=== PATIENT | female | born 1985 | race Caucasian/White ===

== ENCOUNTER → 2017-10-17 | Outpatient (CLI) | payer BC ==
[~2017-10-17] MED LIST: AMOX250 PO; AMOX500 PO; AZIT250 PO; Advil200 M1 PO; BIRTH CONTROL; CRUTCH3 USE; FEXO180; GLIP5 PO; HYDACE5 PO; IBUP800 PO; LISI5 PO; LOSA50 PO; METF500 PO; POLTRIOPSO OU; PRED20 PO; Prednisone20 MG PO; RXCODACET PO; RXHYDACE PO
[2017-10-17 09:57] LABS: BASOPHILS ABSOLUTE AUTO 0.03 K/mm3 (0.00-0.23); BASOPHILS PERCENT AUTO 0 % (0-2); EOSINOPHILS ABSOLUTE AUTO 0.13 K/mm3 (0.00-0.68); EOSINOPHILS PERCENT AUTO 1 % (0-6); Hematocrit 47.5 % (33.0-51.0); Hemoglobin 16.4 g/dL (11.5-16.0); IMMATURE GRAN ABSOLUTE AUTO 0.05 K/mm3 (0.00-0.10); IMMATURE GRAN PERCENT AUTO 1 % (0-1); LYMPHOCYTES ABSOLUTE AUTO 2.35 K/mm3 (0.84-5.20); LYMPHOCYTES PERCENT AUTO 26 % (21-46); MONOCYTES ABSOLUTE AUTO 0.48 K/mm3 (0.16-1.47); MONOCYTES PERCENT AUTO 5 % (4-13); Mean Corpuscular HGB 29.4 pg (26.0-34.0); Mean Corpuscular HGB Conc 34.5 g/dL (31.5-36.5); Mean Corpuscular Volume 85 fL (80-100); Mean Platelet Volume 11.9 fL (9.1-12.4); NEUTROPHILS ABSOLUTE AUTO 6.14 K/mm3 (1.96-9.15); NEUTROPHILS PERCENT AUTO 67 % (41-73); Platelet Count 223 K/mm3 (150-400); RDW Coefficient Variation 11.9 % (11.7-14.2); RDW Standard Deviation 36.7 fL (35.1-46.3); Red Blood Cell Count 5.58 M/mm3 (3.80-5.20); White Blood Cell Count 9.18 K/mm3 (4.00-11.30)
[2017-10-17 10:11] LABS: Alanine Aminotransfer (ALT/SGP 27 U/L (12-78); Albumin, Blood 3.6 g/dL (3.4-5.0); Albumin/Globulin Ratio 0.8 (0.8-1.8); Alk Phos 85 U/L (40-126); Anion Gap 9 mmol/L (6-16); Aspartate Aminotrans (AST/SGOT 15 U/L (12-37); Bilirubin, Total 0.6 mg/dL (0.1-1.0); Blood Urea Nitrogen 14 mg/dL (8-24); Bun/Creatinine Ratio 21.9 (12.0-20.0); CO2, Blood 27 mmol/L (21-32); Calcium, Blood 8.7 mg/dL (8.5-10.1); Chloride, Blood 99 mmol/L (98-108); Creatinine, Blood 0.64 mg/dL (0.40-1.00); Globulin, Blood 4.4 g/dL (2.2-4.0); Glomerular Filtration Rate >60 (60-); Glucose, Blood 297 mg/dL (70-99); Potassium, Blood 4.1 mmol/L (3.5-5.5); Sodium, Blood 135 mmol/L (136-145)
== END | disposition home or self-care (01) ==
LOC: LAB EV 09:53
PROVIDERS: General Practice
DX: E11.65 Type 2 diabetes mellitus with hyperglycemia (principal)
CPT/HCPCS: 80053; 83036; 85025

== ENCOUNTER → 2024-03-03 | Outpatient (CLI) | payer OTHER ==
[~2024-03-03] MED LIST changes: +AMLO5 PO; +AMLODIPINE BESY10 MG PO; +ASPI81CH PO; +ATOR80 PO; +Ascorbic Acid500 MG PO; +CHLO25B PO; +CLOP75 PO; +HYDCHL25 PO; +HYDR10 PO; +HYDRA50 PO; +LABE100 PO; +MULVITA PO; +POTA8 PO; +TICA90TA PO
[2024-03-03 14:46] LABS: BASOPHILS ABSOLUTE AUTO 0.03 K/mm3 (0.00-0.23); BASOPHILS PERCENT AUTO 0 % (0-2); EOSINOPHILS ABSOLUTE AUTO 0.13 K/mm3 (0.00-0.68); EOSINOPHILS PERCENT AUTO 1 % (0-6); Hematocrit 37.8 % (33.0-51.0); Hemoglobin 12.8 g/dL (11.5-16.0); IMMATURE GRAN ABSOLUTE AUTO 0.03 K/mm3 (0.00-0.10); IMMATURE GRAN PERCENT AUTO 0 % (0-1); LYMPHOCYTES ABSOLUTE AUTO 1.47 K/mm3 (0.84-5.20); LYMPHOCYTES PERCENT AUTO 13 % (21-46); MONOCYTES ABSOLUTE AUTO 0.78 K/mm3 (0.16-1.47); MONOCYTES PERCENT AUTO 7 % (4-13); Mean Corpuscular HGB 30.3 pg (26.0-34.0); Mean Corpuscular HGB Conc 33.9 g/dL (31.5-36.5); Mean Corpuscular Volume 89 fL (80-100); Mean Platelet Volume 11.9 fL (9.1-12.4); NEUTROPHILS ABSOLUTE AUTO 8.73 K/mm3 (1.96-9.15); NEUTROPHILS PERCENT AUTO 78 % (41-73); Platelet Count 276 K/mm3 (150-400); RDW Coefficient Variation 12.7 % (11.7-14.2); RDW Standard Deviation 41.1 fL (35.1-46.3); Red Blood Cell Count 4.23 M/mm3 (3.80-5.20); White Blood Cell Count 11.17 K/mm3 (4.00-11.30)
[2024-03-03 14:57] LABS: Albumin, Blood 3.5 g/dL (3.4-5.0); Albumin/Globulin Ratio 0.9 (0.8-1.8); Bilirubin, Total 0.7 mg/dL (0.1-1.0); Bun/Creatinine Ratio 31.5 (12.0-20.0); Calcium, Blood 8.8 mg/dL (8.5-10.1); Creatinine, Blood 1.11 mg/dL (0.40-1.00); Globulin, Blood 4.1 g/dL (2.2-4.0); Potassium, Blood 4.1 mmol/L (3.5-5.5); Total Protein, Blood 7.6 g/dL (6.4-8.2)
== END | disposition home or self-care (01) ==
LOC: LAB 14:42 → LAB SHORT 14:42
PROVIDERS: Physician Assistant Medical
DX: E86.0 Dehydration (principal)
CPT/HCPCS: 80053; 85025

== ENCOUNTER 2024-03-04 05:24 | Inpatient (IN) | payer OTHER ==
[~2024-03-04] VITALS: Ht 147.3 cm; Wt 79.6 kg
[~2024-03-04 05:24] MED LIST changes: -AMLODIPINE BESY10 MG PO; -CHLO25B PO; -HYDRA50 PO; -LABE100 PO; -POTA8 PO; -TICA90TA PO
[2024-03-04 06:30] LABS: BASOPHILS ABSOLUTE AUTO 0.03 K/mm3 (0.00-0.23); BASOPHILS PERCENT AUTO 0 % (0-2); EOSINOPHILS ABSOLUTE AUTO 0.18 K/mm3 (0.00-0.68); EOSINOPHILS PERCENT AUTO 2 % (0-6); Hematocrit 39.7 % (33.0-51.0); Hemoglobin 13.5 g/dL (11.5-16.0); IMMATURE GRAN ABSOLUTE AUTO 0.03 K/mm3 (0.00-0.10); IMMATURE GRAN PERCENT AUTO 0 % (0-1); LYMPHOCYTES ABSOLUTE AUTO 1.78 K/mm3 (0.84-5.20); LYMPHOCYTES PERCENT AUTO 19 % (21-46); MONOCYTES ABSOLUTE AUTO 0.66 K/mm3 (0.16-1.47); MONOCYTES PERCENT AUTO 7 % (4-13); Mean Corpuscular HGB 30.2 pg (26.0-34.0); Mean Corpuscular Volume 89 fL (80-100); Mean Platelet Volume 11.4 fL (9.1-12.4); NEUTROPHILS ABSOLUTE AUTO 6.48 K/mm3 (1.96-9.15); NEUTROPHILS PERCENT AUTO 71 % (41-73); Platelet Count 261 K/mm3 (150-400); RDW Coefficient Variation 12.5 % (11.7-14.2); RDW Standard Deviation 41.4 fL (35.1-46.3); Red Blood Cell Count 4.47 M/mm3 (3.80-5.20); White Blood Cell Count 9.16 K/mm3 (4.00-11.30)
[2024-03-04] MEDS ORDERED: NS 1,000 ML IV SCH (06:40)
[2024-03-04 06:44] LABS: Albumin, Blood 3.7 g/dL (3.4-5.0); Bilirubin, Total 0.8 mg/dL (0.1-1.0); Bun/Creatinine Ratio 30.9 (12.0-20.0); Creatinine, Blood 0.61 mg/dL (0.40-1.00); Globulin, Blood 3.7 g/dL (2.2-4.0); Potassium, Blood 3.4 mmol/L (3.5-5.5); Total Protein, Blood 7.4 g/dL (6.4-8.2)
[2024-03-04] MEDS ORDERED: Potassium Chloride 20 MEQ/15 ML UDC PO ONE (07:15)
[2024-03-04] MEDS ORDERED: POTA8 PO (07:21)
[2024-03-04] MEDS ORDERED: CHLO25B PO (07:21)
[2024-03-04] MEDS ORDERED: AMLODIPINE BESY10 MG PO (07:22)
[2024-03-04] MEDS ORDERED: HYDRA50 PO (07:22)
[2024-03-04] MEDS ORDERED: LOSA50 PO (07:23)
[2024-03-04 07:33] LABS: International Normalized Ratio 0.89; Prothrombin Time Results 9.6 Sec (9.7-11.5)
[2024-03-04] MEDS ORDERED: Losartan Potassium 50 MG Tab PO ONE (09:55)
[2024-03-04] MEDS ORDERED: AmLODIPine Besylate 5 MG Tab PO ONE (09:55)
[2024-03-04] MEDS ORDERED: HydrALAZINE HCl 50 MG Tab PO ONE (09:55)
[2024-03-04] MEDS ORDERED: Aspirin 325 MG Tab PO ONE (09:55)
[2024-03-04] MEDS ORDERED: Ticagrelor 90 MG TABLET PO ONE (09:55)
[2024-03-04] MEDS ORDERED: Aspirin 81 MG Chew PO ONE (10:10)
[2024-03-04] MEDS ORDERED: Acetaminophen 325 MG TABLET PO PRN (11:15)
[2024-03-04] MEDS ORDERED: Potassium Chloride 20 MEQ TabCR PO ONE ×2 (11:15→14:15)
[2024-03-04] MEDS ORDERED: TICA90TA PO (12:25)
[2024-03-04] MEDS ORDERED: LABE100 PO (12:27)
[2024-03-04 13:36] VITALS: BP 142/81
[2024-03-04 17:01] VITALS: BP 148/79
--- NOTE | 2024-03-04 17:01 | NUR ---
MS RODRIGUEZ WAS ADMITTED FROM THE ER TO MEDICAL FLOOR AT 1325HRS. SHE CAME UP VIA WHEELCHAIR. SHE HAS SLIGHT WEAKNESS TO HER LEFT HAND TECHNICAL INTERNSHIP COMPARED TO HER RIGHT AND MORE DEFINATE WEAKNESS OF LEFT FOOT COMPARED TO HER RIGHT FOOT. NO FACIAL DROOP. 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 THE BLURRED VISION AND DIMINISHED RIGHT PERIPHERAL VISION IS NEW. SHE HAS TROUBLE READING WHICH IS NEW. SHE LIVES WITH HER S/O AND SAID SHE HAS BEEN MOSTLY INDEPENDENT AT HOME AND HER S/O CHRISTOPHER HELPS HER WITH GETTING IN AND OUT OF BED SOMETIMES. SHE WALKED IN TO THE BATHROOM WITH HER S/O ASSISTING HER WITNESSED BY RN - GENERALLY PT NEEDS TO HOLD ONTO FURNITURE TO GET INTO THE BATHROOM. I OFFERED HER A GAIT BELT AND A WALKER WHICH SHE HAS DECLINED SO FAR, I WILL CONTINUE TO ADVISE FOR SAME. SHE SAID SHE SOMETIMES USES A WALKER AT HOME. DISCUSSED FALL PRECAUTIONS AND SAFETY WITH PT AND S/O. ORIENTATED X4. ECHO DONE AT BEDSIDE. ON TELEMETRY SR 70S, NO CALLS FROM POT PULLER. BED LOW, CALL LIGHT IN REACH.
[2024-03-04 19:30] VITALS: BP 160/83
[2024-03-04] MEDS ORDERED: Ticagrelor 90 MG TABLET PO SCH (21:00)
[2024-03-05 03:35] VITALS: BP 138/65
--- NOTE | 2024-03-05 04:41 | NUR ---
SUMMARY: PT A/OX4, IS PLEASANT AND COOPERATIVE W/CARE AND CALLS APPROPRIATELY TO SPECIFY NEEDS. SHE'S AWARE OF LIMITATIONS AND IS INDEPENDENT/1PA OOB. OLD L.SIDE DEFICITS PERSIST FROM HX CVA AND VISION TO R.EYE IS BLURRED W/ABSENT PERIPHERAL FIELD R/T NEW INFARCT. SHE'S BEEN NSR AT 70'S BPM ON TELEMETRY. PT DENIES CP/PRESSURE AND NEURO OBS ARE STABLE. VSS/AFEBRILE, NO ACUTE CHANGES. PROBABLE D/C TODAY W/NEURO AND RHEUMATOLOGY CONSULTS RECCOMMENDED. RANDY AND REPORT TO DAY RN.
[2024-03-05 06:01] LABS: Bun/Creatinine Ratio 21.7 (12.0-20.0); Calcium, Blood 8.8 mg/dL (8.5-10.1); Creatinine, Blood 0.55 mg/dL (0.40-1.00); Potassium, Blood 3.9 mmol/L (3.5-5.5)
[2024-03-05 07:27] VITALS: BP 168/87
[2024-03-05 08:51] LABS: BASOPHILS ABSOLUTE AUTO 0.04 K/mm3 (0.00-0.23); BASOPHILS PERCENT AUTO 1 % (0-2); EOSINOPHILS PERCENT AUTO 2 % (0-6); Hematocrit 38.1 % (33.0-51.0); Hemoglobin 12.9 g/dL (11.5-16.0); IMMATURE GRAN ABSOLUTE AUTO 0.01 K/mm3 (0.00-0.10); IMMATURE GRAN PERCENT AUTO 0 % (0-1); LYMPHOCYTES ABSOLUTE AUTO 2.29 K/mm3 (0.84-5.20); LYMPHOCYTES PERCENT AUTO 27 % (21-46); MONOCYTES ABSOLUTE AUTO 0.68 K/mm3 (0.16-1.47); MONOCYTES PERCENT AUTO 8 % (4-13); Mean Corpuscular HGB 30.9 pg (26.0-34.0); Mean Corpuscular HGB Conc 33.9 g/dL (31.5-36.5); Mean Corpuscular Volume 91 fL (80-100); Mean Platelet Volume 12.1 fL (9.1-12.4); NEUTROPHILS ABSOLUTE AUTO 5.33 K/mm3 (1.96-9.15); NEUTROPHILS PERCENT AUTO 62 % (41-73); Platelet Count 257 K/mm3 (150-400); RDW Coefficient Variation 12.7 % (11.7-14.2); Red Blood Cell Count 4.18 M/mm3 (3.80-5.20); White Blood Cell Count 8.55 K/mm3 (4.00-11.30)
[2024-03-05 08:59] LABS: CHOL/HDL RATIO 1.9; Cholesterol 77 mg/dL (50-200); HDL Cholesterol 40 mg/dL (>39); LDL/HDL RATIO 0.7; Low Density Lipoprotein Chol 26 mg/dL (0-110); Triglycerides 54 mg/dL (30-140); Very Low Density Lipoprot Chol 10 mg/dL (6-28)
[2024-03-05] MEDS ORDERED: Aspirin 81 MG Chew PO SCH (09:00)
[2024-03-05] MEDS ORDERED: Enoxaparin 40 MG/0.4 ML SYR SC SCH (09:00)
[2024-03-05 16:02] VITALS: BP 150/100
[2024-03-05] MEDS ORDERED: METF500 PO (16:21)
[2024-03-05] MEDS ORDERED: POTA8 PO (16:22)
--- NOTE | 2024-03-05 16:39 | NUR ---
SHIFT SUMMARY MS RODRIGUEZ HAS IMPROVED STRENGTH TO HER LEFT HAND COMPARED TO YESTERDAY. HER LEFT FOOT REMAINS SIGNIFICANTLY WEAKER THAN HER RIGHT FOOT. SHE STILL C/O VISUAL DIFFICULTIES AND HAS DIFFICULTY THINKING OF SOME WORDS. SHE IS EAGER TO GO HOME BUT HAS AGREED TO STAY IN THE HOSPITAL TO SEE DR MONET WHO HAS BEEN CONSULTED FOR NEUROLOGY. SHE HAS UNSTEADY GAIT AND IS A FALL RISK, BUT HAS AGREED TO USE THE WALKER AND USES THE CALL LIGHT FOR ASSISTANCE TO THE BATHROOM. HER S/O IS AT THE BEDSIDE AND BEEN SUPPORTIVE. SHE HAS DENIED ANY PAIN. IN CHAIR, CALL LIGHT IN REACH.
[2024-03-05 19:55] VITALS: BP 179/86
[2024-03-06 03:04] LABS: COMPLEMENT COMPONENT 3 135 mg/dL (90-180); COMPLEMENT COMPONENT 4 29 mg/dL (10-40)
[2024-03-06 03:56] VITALS: BP 174/87
[2024-03-06 05:44] LABS: ANTI-NUCLEAR AB ANA,IGG ELISA None Detected (None Detected)
[2024-03-06 05:54] LABS: BASOPHILS ABSOLUTE AUTO 0.03 K/mm3 (0.00-0.23); BASOPHILS PERCENT AUTO 0 % (0-2); EOSINOPHILS ABSOLUTE AUTO 0.19 K/mm3 (0.00-0.68); EOSINOPHILS PERCENT AUTO 2 % (0-6); Hematocrit 37.4 % (33.0-51.0); Hemoglobin 12.9 g/dL (11.5-16.0); IMMATURE GRAN ABSOLUTE AUTO 0.02 K/mm3 (0.00-0.10); IMMATURE GRAN PERCENT AUTO 0 % (0-1); LYMPHOCYTES ABSOLUTE AUTO 2.04 K/mm3 (0.84-5.20); LYMPHOCYTES PERCENT AUTO 24 % (21-46); MONOCYTES ABSOLUTE AUTO 0.63 K/mm3 (0.16-1.47); MONOCYTES PERCENT AUTO 7 % (4-13); Mean Corpuscular HGB 30.4 pg (26.0-34.0); Mean Corpuscular HGB Conc 34.5 g/dL (31.5-36.5); Mean Corpuscular Volume 88 fL (80-100); Mean Platelet Volume 11.6 fL (9.1-12.4); NEUTROPHILS ABSOLUTE AUTO 5.77 K/mm3 (1.96-9.15); NEUTROPHILS PERCENT AUTO 67 % (41-73); Platelet Count 264 K/mm3 (150-400); RDW Coefficient Variation 12.3 % (11.7-14.2); RDW Standard Deviation 39.7 fL (35.1-46.3); Red Blood Cell Count 4.25 M/mm3 (3.80-5.20); White Blood Cell Count 8.68 K/mm3 (4.00-11.30)
[2024-03-06 06:12] LABS: Bun/Creatinine Ratio 36.1 (12.0-20.0); Calcium, Blood 8.6 mg/dL (8.5-10.1); Creatinine, Blood 0.61 mg/dL (0.40-1.00); Potassium, Blood 3.5 mmol/L (3.5-5.5)
--- NOTE | 2024-03-06 06:54 | NUR ---
END OF SHIFT SUMMARY PT A&OX4, EXPRESSIVE APHAGIA AND WORD-FINDING. PT HAX HX OF CVA WITH LLE WEAKNESS, DROPFOOT. PT DENIES VISION CHANGES CURRENTLY. UP TO BSC WITH 1XA/FWW/GB, UNSTEADY GAIT AT TIMES. SPOUSE AT BEDSIDE DURING NIGHT. NO NEW EVENTS.
[2024-03-06 07:38] VITALS: BP 151/75
[2024-03-06] MEDS ORDERED: MetFORMIN HCl 500 mg PO SCH (08:00)
[2024-03-06] MEDS ORDERED: Labetalol HCL 100 MG TAB PO SCH (09:00)
[2024-03-06] MEDS ORDERED: Atorvastatin 40 MG Tab PO SCH (09:00)
[2024-03-06] MEDS ORDERED: Losartan Potassium 50 MG Tab PO SCH (09:00)
[2024-03-06] MEDS ORDERED: HydrALAZINE HCl 50 MG Tab PO SCH (09:00)
[2024-03-06] MEDS ORDERED: HydroCHLOROthiazide 25 mg Tab PO SCH (09:00)
[2024-03-06] MEDS ORDERED: AmLODIPine Besylate 5 MG Tab PO SCH (09:00)
[2024-03-06] MEDS ORDERED: Multivitamins 1 Tab PO SCH (09:00)
[2024-03-06 10:36] VITALS: BP 144/81
[2024-03-06 11:00] LABS: MYELOPEROXIDASE (MPO) AB,IGG 0 AU/mL (0-19); SERINE PROTEINASE 3 PR3 AB,IGG 2 AU/mL (0-19)
--- NOTE | 2024-03-06 13:58 | NUR ---
PT DISCHARGED THE PT VERBALIZED UNDERSTANDING OF THE DC INSTRUCTIONS. THE PT REPORTED HAVING FOLLOW UP APPOINTMENTS ESTABLISHED WITH HER PCP'S PRIOR TO DC. THE PT WAS TRANSFERED VIA WHEELCHAIR ACCOMPANIED BY HER AND THE ROPEWALK ROPE MAKER. BELONGS RELEASED TO THE PT AND HER
== END 2024-03-06 13:16 | disposition home or self-care (01) | DRG 65 ==
LOC: ER 05:24 → MEDS 05:25
PROVIDERS: Emergency Medicine; Internal Medicine; ADMIT Internal Medicine
DX: I63.9 Cerebral infarction, unspecified (principal); I42.9 Cardiomyopathy, unspecified; I69.354 Hemiplegia and hemiparesis following cerebral infarction affecting left non-dominant side; R47.01 Aphasia; I10 Essential (primary) hypertension; E66.9 Obesity, unspecified; E11.9 Type 2 diabetes mellitus without complications; E86.0 Dehydration; E87.6 Hypokalemia; Z87.891 Personal history of nicotine dependence; Z68.37 Body mass index [BMI] 37.0-37.9, adult; Z79.899 Other long term (current) drug therapy; Z79.82 Long term (current) use of aspirin
CPT/HCPCS: 36415; 70450; 70496; 70498; 70551; 80048; 80053; 80061; 83516; 85025; 85610; 85651; 86038; 86140; 86160; 92523; 92610; 93005; 93010; 93246; 93308; 93321; 96372; 97116; 97162; 97530; 99285-25; A9270; G0378; J1650; J7030; Q9967

== ENCOUNTER 2024-03-12 09:26 | Observation (INO) | payer OTHER ==
[~2024-03-12] VITALS: Ht 147.3 cm; Wt 80.0 kg
[~2024-03-12 09:26] MED LIST changes: +AMLODIPINE BESY10 MG PO; +CHLO25B PO; +HYDRA50 PO; +LABE100 PO; +POTA8 PO; +TICA90TA PO
[2024-03-12] MEDS ORDERED: NS 1,000 ML IV ONE (09:38)
[2024-03-12] MEDS ORDERED: Potassium Chloride 20 MEQ TabCR PO ONE (15:25)
[2024-03-12 15:31] LABS: BASOPHILS ABSOLUTE AUTO 0.04 K/mm3 (0.00-0.23); BASOPHILS PERCENT AUTO 0 % (0-2); EOSINOPHILS ABSOLUTE AUTO 0.09 K/mm3 (0.00-0.68); EOSINOPHILS PERCENT AUTO 1 % (0-6); Hematocrit 39.3 % (33.0-51.0); Hemoglobin 13.5 g/dL (11.5-16.0); IMMATURE GRAN ABSOLUTE AUTO 0.06 K/mm3 (0.00-0.10); IMMATURE GRAN PERCENT AUTO 0 % (0-1); LYMPHOCYTES ABSOLUTE AUTO 1.58 K/mm3 (0.84-5.20); LYMPHOCYTES PERCENT AUTO 11 % (21-46); MONOCYTES ABSOLUTE AUTO 0.69 K/mm3 (0.16-1.47); MONOCYTES PERCENT AUTO 5 % (4-13); Mean Corpuscular HGB 30.6 pg (26.0-34.0); Mean Corpuscular HGB Conc 34.4 g/dL (31.5-36.5); Mean Corpuscular Volume 89 fL (80-100); Mean Platelet Volume 11.2 fL (9.1-12.4); NEUTROPHILS ABSOLUTE AUTO 12.19 K/mm3 (1.96-9.15); NEUTROPHILS PERCENT AUTO 83 % (41-73); Platelet Count 291 K/mm3 (150-400); RDW Coefficient Variation 12.5 % (11.7-14.2); RDW Standard Deviation 40.9 fL (35.1-46.3); Red Blood Cell Count 4.41 M/mm3 (3.80-5.20); White Blood Cell Count 14.65 K/mm3 (4.00-11.30)
[2024-03-12 15:33] LABS: Albumin, Blood 3.6 g/dL (3.4-5.0); Albumin/Globulin Ratio 0.9 (0.8-1.8); Bun/Creatinine Ratio 48.4 (12.0-20.0); Calcium, Blood 8.8 mg/dL (8.5-10.1); Creatinine, Blood 0.6 mg/dL (0.40-1.00); Globulin, Blood 3.9 g/dL (2.2-4.0); Potassium, Blood 3.3 mmol/L (3.5-5.5); Total Protein, Blood 7.5 g/dL (6.4-8.2)
--- NOTE | 2024-03-12 16:00 | NUR ---
SHIFT SUMMARY; PATIENT ADMITTED AT 1500 TO MED FLOOR FROM ER. SHE HAD STROKE LIKE SYMPTOMS AT HOME AND WAS BROUGHT IN BY SPOUSE. SHE IS TO HAVE AN MRI AT 1620. PER REPORT IF MRI SHOWS NO NEW AREAS OF CONCERN PATEINT WILL PROBABLY DC TONIGHT. PATIENT IS ALMOST BACK TO BASELINE PER SPOUSE. SHE DOES HAVE INCREASED WEAKNESS PER SPOUSE ON LEFT SIDE AND HER LEFT LEG IS SPASMING MORE THAN USUAL. BUT OTHER THAN THAT SHE IS AT BASE. PATIENT IS NOTED TO SLUR HER WORDS BUT IS ORIENTED X 4 TODAY. DRINKS WATER FROM STRAW AND IS NO CHOKING OR DIFFICULTY NOTED.
[2024-03-12] MEDS ORDERED: NS 1,000 ML IV SCH (16:05)
[2024-03-12] MEDS ORDERED: Zolpidem Tartrate 5 MG Tab PO PRN (16:10)
[2024-03-12] MEDS ORDERED: Ondansetron HCl 2 MG / ML 2ML Vial IV PRN (16:10)
[2024-03-12] MEDS ORDERED: Ondansetron 4 MG TAB PO PRN (16:10)
[2024-03-12] MEDS ORDERED: Potassium Chloride 10 Meq Tablet SA PO ONE (16:15)
[2024-03-12 16:49] VITALS: BP 140/77
[2024-03-12 18:14] LABS: Source, Urine Clean Catch
[2024-03-12 18:23] LABS: Appearance, Urine Clear (Clear); Bilirubin, Urine Neg (Neg); Blood, Urine Neg (Neg); Color, Urine Yellow (P-Yellow); Glucose Qualitative, Urine Neg (Neg); Ketones, Urine 2+ (Neg); Leukocyte Esterase, Urine 1+ (Neg); Nitrite, Urine Neg (Neg); Protein, Urine 1+ (Neg); Urobilinogen, Urine 1+ (Normal)
[2024-03-12 18:34] LABS: Amorphous Light (0-Heavy); Bacteria Mod /hpf; Red Blood Cells, Urine Not Seen /hpf (0-2); Squamous Epithelial Cells Mod /hpf (Few)
[2024-03-12 18:35] LABS: U Amphetamine Screen Not Detected; U Barbituate Screen Not Detected; U Benzodiazapine Screen Not Detected; U Buprenorphine Screen Not Detected; U Cannabinoids Screen Not Detected; U Cocaine Screen Not Detected; U Methadone Screen Not Detected; U Methamphetamine Screen Not Detected; U Opiates Screen Not Detected; U Oxycodone Screen Not Detected; U Phencyclidine Screen Not Detected
[2024-03-12 19:15] VITALS: BP 137/62
[2024-03-12] MEDS ORDERED: HydrALAZINE HCl 50 MG Tab PO SCH (21:00)
[2024-03-12] MEDS ORDERED: Labetalol HCL 100 MG TAB PO SCH (21:00)
[2024-03-12] MEDS ORDERED: Ticagrelor 90 MG TABLET PO SCH (21:00)
--- NOTE | 2024-03-12 23:02 | NUR ---
PATIENT APPEARS TO BE SLEEPING COMFORTABLY AND IS IN NO APPARENT DISTRESS.
--- NOTE | 2024-03-13 01:34 | NUR ---
THIS RN CHECKS ON PATIENT AND PATIENT IS AWAKE AND REPORTS NEEDING TO USE THE RESTROOM. THIS RN ASSISTS PATIENT TO THE RESTROOM AND BACK TO BED. PATIENT DENIES DISCOMFORT AT THIS TIME. CALL LIGHT IS PLACED WITHIN REACH AND PATIENT DENIES ANY FURTHER NEEDS.
--- NOTE | 2024-03-13 02:56 | NUR ---
PATIENT APPEARS TO BE SLEEPING COMFORTABLY WHEN THIS RN ENTERS ROOM. PATIENT IS EASILY ROUSED FOR SCHEDULED NEURO ASSESSMENT.
[2024-03-13 03:26] VITALS: BP 125/68
[2024-03-13 05:02] LABS: BASOPHILS ABSOLUTE AUTO 0.04 K/mm3 (0.00-0.23); BASOPHILS PERCENT AUTO 0 % (0-2); EOSINOPHILS ABSOLUTE AUTO 0.15 K/mm3 (0.00-0.68); EOSINOPHILS PERCENT AUTO 1 % (0-6); Hematocrit 37.7 % (33.0-51.0); Hemoglobin 13.1 g/dL (11.5-16.0); IMMATURE GRAN ABSOLUTE AUTO 0.06 K/mm3 (0.00-0.10); IMMATURE GRAN PERCENT AUTO 1 % (0-1); LYMPHOCYTES PERCENT AUTO 21 % (21-46); MONOCYTES ABSOLUTE AUTO 0.81 K/mm3 (0.16-1.47); MONOCYTES PERCENT AUTO 7 % (4-13); Mean Corpuscular HGB 30.5 pg (26.0-34.0); Mean Corpuscular HGB Conc 34.7 g/dL (31.5-36.5); Mean Corpuscular Volume 88 fL (80-100); Mean Platelet Volume 11.5 fL (9.1-12.4); NEUTROPHILS ABSOLUTE AUTO 7.64 K/mm3 (1.96-9.15); NEUTROPHILS PERCENT AUTO 69 % (41-73); Platelet Count 281 K/mm3 (150-400); RDW Coefficient Variation 12.8 % (11.7-14.2); RDW Standard Deviation 40.9 fL (35.1-46.3); Red Blood Cell Count 4.29 M/mm3 (3.80-5.20)
--- NOTE | 2024-03-13 05:16 | NUR ---
SHIFT SUMMARY PATIENT IS ALERT AND ORIENTED X4. SPEECH IS SLOW AND SOMETIMES SLURRED, ESPECIALLY AFTER WAKING DURING THE NIGHT. PLEASANT AND COOPERATIVE WITH CARE. PATIENT DENIES PAIN OR DISCOMFORT. PATIENT REPORTS AT SHIFT CHANGE THAT SHE CAN READ THE WHITEBOARD, BUT CANNOT EXPRESS THE INFORMATION VERBALLY. PATIENT SLEPT THROUGHOUT MOST OF THE NIGHT UNTIL LAB DRAW AT 0400. NO ACUTE CHANGES DURING SHIFT.
[2024-03-13 05:20] LABS: Calcium, Blood 8.6 mg/dL (8.5-10.1); Creatinine, Blood 0.58 mg/dL (0.40-1.00); Potassium, Blood 3.6 mmol/L (3.5-5.5)
[2024-03-13 08:02] VITALS: BP 133/72
[2024-03-13] MEDS ORDERED: Enoxaparin 40 MG/0.4 ML SYR SC SCH (09:00)
[2024-03-13] MEDS ORDERED: AmLODIPine Besylate 5 MG Tab PO SCH (09:00)
[2024-03-13] MEDS ORDERED: Losartan Potassium 50 MG Tab PO SCH (09:00)
[2024-03-13] MEDS ORDERED: HydroCHLOROthiazide 25 mg Tab PO SCH (09:00)
[2024-03-13] MEDS ORDERED: Atorvastatin 40 MG Tab PO SCH (09:00)
[2024-03-13] MEDS ORDERED: Aspirin 81 MG Chew PO SCH (09:00)
[2024-03-13] MEDS ORDERED: HYDCHL25 PO (14:53)
[2024-03-13] MEDS ORDERED: LABE100 PO (14:54)
[2024-03-13] MEDS ORDERED: POTCHL20ER PO (14:55)
--- NOTE | 2024-03-13 15:34 | NUR ---
DISCHARGE REVIEWED WITH PT AND SPOUSE. VERBALIZED UNDERSTANDING MEDS AND INST. FUEL EFFICIENT AIRCRAFT DESIGNER TO PULL IV AND REMOVE TELE.
--- NOTE | 2024-03-13 15:45 | NUR ---
PT WHEELED TO DOOR AT 1545 BY VIC.
== END 2024-03-13 15:55 | disposition home or self-care (01) ==
LOC: ER 09:26 → MEDS 09:27 → ER 14:58 → MEDS 15:18
PROVIDERS: Emergency Medicine; ADMIT Internal Medicine
DX: I63.9 Cerebral infarction, unspecified (principal); R47.01 Aphasia; R26.81 Unsteadiness on feet; E87.6 Hypokalemia; I10 Essential (primary) hypertension; E11.9 Type 2 diabetes mellitus without complications; E78.5 Hyperlipidemia, unspecified; Z79.82 Long term (current) use of aspirin; Z79.84 Long term (current) use of oral hypoglycemic drugs; Z79.899 Other long term (current) drug therapy
CPT/HCPCS: 36415; 70450; 70496; 70498; 70551; 80048; 80053; 81001; 82947; 84146; 84484; 85025; 87086; 92610; 93005; 93010; 96372; 97110; 97112; 97162; 99285-25; A9270; G0378; J1650; Q9967

== ENCOUNTER 2024-03-15 01:08 | Emergency (ER) | payer OTHER ==
[~2024-03-15] VITALS: Ht 147.3 cm; Wt 83.9 kg
[~2024-03-15 01:08] MED LIST changes: +POTCHL20ER PO
[2024-03-15 03:07] LABS: Source, Urine Straight Cath
[2024-03-15 03:09] LABS: Bilirubin, Urine Neg (Neg); Blood, Urine Neg (Neg); Glucose Qualitative, Urine Neg (Neg); Ketones, Urine Neg (Neg); Leukocyte Esterase, Urine 1+ (Neg); Nitrite, Urine Neg (Neg); Protein, Urine 1+ (Neg); Urobilinogen, Urine 2+ (Normal)
[2024-03-15 03:21] LABS: Appearance, Urine Hazy (Clear); Color, Urine Yellow (P-Yellow)
[2024-03-15 03:22] LABS: Amorphous Light (0-Heavy); Bacteria Mod /hpf; Mucus Light (0-Heavy); Red Blood Cells, Urine Not Seen /hpf (0-2); Squamous Epithelial Cells Few /hpf (Few)
[2024-03-15] MEDS ORDERED: MetroNIDAZOLE 500 MG Tab PO ONE (04:10)
[2024-03-15 04:15] VITALS: BP 164/92
[2024-03-15] MEDS ORDERED: Flagyl500 MG PO (04:37)
[2024-03-22] MEDS ORDERED: PHENA200 PO (00:07)
== END 2024-03-15 04:48 | disposition home or self-care (01) ==
LOC: ER 01:08
PROVIDERS: Emergency Medicine
DX: N76.0 Acute vaginitis (principal); E11.9 Type 2 diabetes mellitus without complications; I10 Essential (primary) hypertension; G43.909 Migraine, unspecified, not intractable, without status migrainosus; Z86.73 Personal history of transient ischemic attack (TIA), and cerebral infarction without residual deficits; Z79.82 Long term (current) use of aspirin; Z79.84 Long term (current) use of oral hypoglycemic drugs; Z79.899 Other long term (current) drug therapy
CPT/HCPCS: 51798; 70450; 81001; 81025; 87077; 87086; 87186; 93005; 93010; 99284-25; A9270

== ENCOUNTER 2024-03-18 14:46 | Emergency (ER) | payer OTHER ==
[~2024-03-18] VITALS: Ht 147.3 cm; Wt 77.1 kg
[~2024-03-18 14:46] MED LIST changes: +Flagyl500 MG PO
[2024-03-18 15:39] LABS: BASOPHILS ABSOLUTE AUTO 0.04 K/mm3 (0.00-0.23); BASOPHILS PERCENT AUTO 0 % (0-2); EOSINOPHILS ABSOLUTE AUTO 0.13 K/mm3 (0.00-0.68); EOSINOPHILS PERCENT AUTO 1 % (0-6); Hematocrit 38.7 % (33.0-51.0); Hemoglobin 13.1 g/dL (11.5-16.0); IMMATURE GRAN ABSOLUTE AUTO 0.03 K/mm3 (0.00-0.10); IMMATURE GRAN PERCENT AUTO 0 % (0-1); LYMPHOCYTES ABSOLUTE AUTO 1.92 K/mm3 (0.84-5.20); LYMPHOCYTES PERCENT AUTO 17 % (21-46); MONOCYTES ABSOLUTE AUTO 0.77 K/mm3 (0.16-1.47); MONOCYTES PERCENT AUTO 7 % (4-13); Mean Corpuscular HGB 30.1 pg (26.0-34.0); Mean Corpuscular HGB Conc 33.9 g/dL (31.5-36.5); Mean Corpuscular Volume 89 fL (80-100); Mean Platelet Volume 11.8 fL (9.1-12.4); NEUTROPHILS ABSOLUTE AUTO 8.28 K/mm3 (1.96-9.15); NEUTROPHILS PERCENT AUTO 74 % (41-73); Platelet Count 294 K/mm3 (150-400); RDW Standard Deviation 42.5 fL (35.1-46.3); Red Blood Cell Count 4.35 M/mm3 (3.80-5.20); White Blood Cell Count 11.17 K/mm3 (4.00-11.30)
[2024-03-18 16:00] LABS: Albumin, Blood 3.8 g/dL (3.4-5.0); Bilirubin, Total 0.8 mg/dL (0.1-1.0); Bun/Creatinine Ratio 27.5 (12.0-20.0); Calcium, Blood 9.2 mg/dL (8.5-10.1); Creatinine, Blood 0.73 mg/dL (0.40-1.00); Globulin, Blood 3.8 g/dL (2.2-4.0); Potassium, Blood 3.7 mmol/L (3.5-5.5); Total Protein, Blood 7.6 g/dL (6.4-8.2)
[2024-03-18 16:30] VITALS: BP 139/74
== END 2024-03-18 16:45 ==
LOC: ER 14:46
PROVIDERS: Physician Assistant
DX: R55 Syncope and collapse (principal); I10 Essential (primary) hypertension; E11.9 Type 2 diabetes mellitus without complications; Z79.899 Other long term (current) drug therapy; Z79.82 Long term (current) use of aspirin
CPT/HCPCS: 80053; 82947; 85025; 99284-25

== ENCOUNTER 2024-08-15 11:01 | Emergency (ER) | payer OTHER ==
[~2024-08-15] VITALS: Ht 177.8 cm; Wt 81.7 kg
[~2024-08-15 11:01] MED LIST changes: +PHENA200 PO
[2024-08-15 12:23] LABS: BASOPHILS ABSOLUTE AUTO 0.05 K/mm3 (0.00-0.23); BASOPHILS PERCENT AUTO 0 % (0-2); EOSINOPHILS PERCENT AUTO 2 % (0-6); Hematocrit 36.7 % (33.0-51.0); Hemoglobin 12.4 g/dL (11.5-16.0); IMMATURE GRAN ABSOLUTE AUTO 0.05 K/mm3 (0.00-0.10); IMMATURE GRAN PERCENT AUTO 0 % (0-1); LYMPHOCYTES ABSOLUTE AUTO 1.19 K/mm3 (0.84-5.20); LYMPHOCYTES PERCENT AUTO 10 % (21-46); MONOCYTES ABSOLUTE AUTO 0.56 K/mm3 (0.16-1.47); MONOCYTES PERCENT AUTO 5 % (4-13); Mean Corpuscular HGB 30.7 pg (26.0-34.0); Mean Corpuscular HGB Conc 33.8 g/dL (31.5-36.5); Mean Corpuscular Volume 91 fL (80-100); Mean Platelet Volume 11.7 fL (9.1-12.4); NEUTROPHILS ABSOLUTE AUTO 9.53 K/mm3 (1.96-9.15); NEUTROPHILS PERCENT AUTO 82 % (41-73); Platelet Count 359 K/mm3 (150-400); RDW Coefficient Variation 13.1 % (11.7-14.2); RDW Standard Deviation 43.5 fL (35.1-46.3); Red Blood Cell Count 4.04 M/mm3 (3.80-5.20); White Blood Cell Count 11.58 K/mm3 (4.00-11.30)
[2024-08-15 12:44] LABS: Albumin, Blood 3.7 g/dL (3.4-5.0); Albumin/Globulin Ratio 0.9 (0.8-1.8); Bilirubin, Total 0.7 mg/dL (0.1-1.0); Bun/Creatinine Ratio 34.3 (12.0-20.0); Calcium, Blood 9.3 mg/dL (8.5-10.1); Creatinine, Blood 0.76 mg/dL (0.40-1.00); Globulin, Blood 3.9 g/dL (2.2-4.0); Potassium, Blood 3.9 mmol/L (3.5-5.5); Total Protein, Blood 7.6 g/dL (6.4-8.2)
[2024-08-15] MEDS ORDERED: NS 1,000 ML IV SCH (13:05)
[2024-08-15 15:40] VITALS: BP 139/69
== END 2024-08-15 15:44 | disposition home or self-care (01) ==
LOC: ER 11:01
PROVIDERS: Physician Assistant
DX: R55 Syncope and collapse (principal); R42 Dizziness and giddiness; G43.909 Migraine, unspecified, not intractable, without status migrainosus; E11.9 Type 2 diabetes mellitus without complications; I10 Essential (primary) hypertension; Z86.73 Personal history of transient ischemic attack (TIA), and cerebral infarction without residual deficits; Z79.84 Long term (current) use of oral hypoglycemic drugs; Z79.82 Long term (current) use of aspirin; Z79.899 Other long term (current) drug therapy
CPT/HCPCS: 80053; 84484; 85025; 93005; 93010; 99283-25; J7030

== ENCOUNTER 2024-10-20 17:15 | Observation (INO) | payer OTHER ==
[~2024-10-20] VITALS: Ht 149.9 cm; Wt 86.3 kg
[2024-10-20 18:45] LABS: BASOPHILS ABSOLUTE AUTO 0.02 K/mm3 (0.00-0.23); BASOPHILS PERCENT AUTO 0 % (0-2); EOSINOPHILS ABSOLUTE AUTO 0.25 K/mm3 (0.00-0.68); EOSINOPHILS PERCENT AUTO 3 % (0-6); Hematocrit 36.1 % (33.0-51.0); Hemoglobin 12.3 g/dL (11.5-16.0); IMMATURE GRAN ABSOLUTE AUTO 0.02 K/mm3 (0.00-0.10); IMMATURE GRAN PERCENT AUTO 0 % (0-1); LYMPHOCYTES ABSOLUTE AUTO 2.32 K/mm3 (0.84-5.20); LYMPHOCYTES PERCENT AUTO 24 % (21-46); MONOCYTES ABSOLUTE AUTO 0.73 K/mm3 (0.16-1.47); MONOCYTES PERCENT AUTO 7 % (4-13); Mean Corpuscular HGB 30.4 pg (26.0-34.0); Mean Corpuscular HGB Conc 34.1 g/dL (31.5-36.5); Mean Corpuscular Volume 89 fL (80-100); NEUTROPHILS ABSOLUTE AUTO 6.51 K/mm3 (1.96-9.15); NEUTROPHILS PERCENT AUTO 66 % (41-73); Platelet Count 295 K/mm3 (150-400); RDW Coefficient Variation 12.8 % (11.7-14.2); RDW Standard Deviation 42.2 fL (35.1-46.3); Red Blood Cell Count 4.05 M/mm3 (3.80-5.20); White Blood Cell Count 9.85 K/mm3 (4.00-11.30)
[2024-10-20 18:54] LABS: Albumin, Blood 3.4 g/dL (3.4-5.0); Albumin/Globulin Ratio 0.9 (0.8-1.8); Bilirubin, Total 0.5 mg/dL (0.1-1.0); Bun/Creatinine Ratio 27.1 (12.0-20.0); Calcium, Blood 8.7 mg/dL (8.5-10.1); Creatinine, Blood 0.59 mg/dL (0.40-1.00); Globulin, Blood 3.8 g/dL (2.2-4.0); Potassium, Blood 3.2 mmol/L (3.5-5.5); Total Protein, Blood 7.2 g/dL (6.4-8.2)
[2024-10-20] MEDS ORDERED: Magnesium Oxide 400 MG Tab PO ONE (20:30)
[2024-10-20] MEDS ORDERED: Potassium Chloride 20 MEQ TabCR PO ONE (20:30)
[2024-10-20] MEDS ORDERED: Ondansetron 4 MG TAB PO PRN (23:20)
[2024-10-20] MEDS ORDERED: FLU VACC TS2024-25(6MOS UP)/PF 45 MCG/0.5 ML SYRINGE IM ONE (23:25)
[2024-10-20] MEDS ORDERED: Magnesium Hydroxide Conc 10 ML UDC PO PRN (23:25)
--- NOTE | 2024-10-21 | NUR ---
ADMISSION NOTE PT ARRIVED TO 312 AT [facility]. PT ARRIVED VIA WHEELCHAIR AND TRANSFERRED TO BED INDEPENDENTLY. SPOUSE WAS AT BEDSIDE. PT WAS AOX4, PLEASANT AND COOPERATIVE. PT ABLE TO MAKE NEEDS KNOWN. PT REPORTED NO PAIN OR DISCOMFORT. BED LOCKED IN LOWEST POSITION. EXPLAINED CALL LIGHT TO PT. PT VERBALIZED UNDERSTANDING. THIS RN TO ASSUME CARE.
[2024-10-21 00:04] VITALS: BP 141/72
[2024-10-21] MEDS ORDERED: Labetalol HCL 100 MG TAB PO SCH (00:37)
[2024-10-21 04:57] VITALS: BP 129/67
[2024-10-21 05:41] LABS: Bun/Creatinine Ratio 26.3 (12.0-20.0); Calcium, Blood 8.6 mg/dL (8.5-10.1); Creatinine, Blood 0.5 mg/dL (0.40-1.00); Magnesium, Blood 1.8 mg/dL (1.6-2.4); Potassium, Blood 3.1 mmol/L (3.5-5.5)
--- NOTE | 2024-10-21 07:17 | NUR ---
SHIFT SUMMARY PT ARRIVED ON UNIT AT 0000. PT HAS BEEN RESTING IN BED COMFORTABLY SINCE. PT AOX4, CALM AND COOPERATIVE. PT'S SPOUSE WAS AT BEDSIDE FOR MOST OF THE NIGHT. PT HAD NO COMPLAINTS OVERNIGHT. PT HAD UNEVENTFUL EVENING.
[2024-10-21 07:26] VITALS: BP 136/73
[2024-10-21] MEDS ORDERED: Losartan Potassium 50 MG Tab PO SCH (09:00)
[2024-10-21] MEDS ORDERED: Atorvastatin 40 MG Tab PO SCH (09:00)
[2024-10-21] MEDS ORDERED: MetFORMIN HCl 500 mg PO SCH (09:00)
[2024-10-21] MEDS ORDERED: Sennosides 8.6 MG Tab PO SCH (09:00)
[2024-10-21] MEDS ORDERED: Aspirin 81 MG Chew PO SCH (09:00)
[2024-10-21] MEDS ORDERED: Ticagrelor 90 MG TABLET PO SCH (09:00)
[2024-10-21] MEDS ORDERED: HydroCHLOROthiazide 25 mg Tab PO SCH (09:00)
[2024-10-21] MEDS ORDERED: Potassium Chloride 20 MEQ TabCR PO SCH (09:00)
[2024-10-21] MEDS ORDERED: HydrALAZINE HCl 50 MG Tab PO SCH (09:00)
[2024-10-21] MEDS ORDERED: Enoxaparin 40 MG/0.4 ML SYR SC SCH (09:00)
[2024-10-21] MEDS ORDERED: AmLODIPine Besylate 5 MG Tab PO SCH (09:00)
[2024-10-21 15:21] VITALS: BP 126/65
--- NOTE | 2024-10-21 17:42 | NUR ---
DISCHARGE NOTE PATIENT A/OX4, ABLE TO MAKE NEEDS KNOWN. PLEASANT AND COOPERATIVE WITH CARE. AT BEDSIDE MOST OF SHIFT. MRI SHOWING ACUTE INFART. ECHOCARDIOGRAM OBTAINED THIS SHIFT. ZIOPATCH ORDERED AT [facility] AND APPLIED PRIOR TO DISCHARGE. PATIENT AGREEABLE TO DISCHARGE PLAN. PATIENT ASSISTED TO FAMILY VEHICLE BY [facility] STAFF. IV REMOVED PRIOR TO DISCHARGE.
[2024-10-24 19:43] LABS: MYELOPEROXIDASE (MPO) AB,IGG 0 AU/mL (0-19); SERINE PROTEINASE 3 PR3 AB,IGG 1 AU/mL (0-19)
[2024-10-24 22:35] LABS: ANTI-NUCLEAR AB ANA,IGG ELISA None Detected (None Detected)
== END 2024-10-21 16:21 | disposition home or self-care (01) ==
LOC: ER 17:15 → ERHOLD 17:16 → MEDS 10-21
PROVIDERS: Family Medicine; Physician Assistant; ADMIT Student in an Organized Health Care Education/Training Program
DX: G45.9 Transient cerebral ischemic attack, unspecified (principal); E11.9 Type 2 diabetes mellitus without complications; I10 Essential (primary) hypertension; M54.30 Sciatica, unspecified side; Z79.82 Long term (current) use of aspirin; Z79.84 Long term (current) use of oral hypoglycemic drugs; Z79.899 Other long term (current) drug therapy
CPT/HCPCS: 36415; 70450; 70496; 70551; 80048; 80053; 83516; 83735; 85025; 86038; 93005; 93010; 93246; 93306; 99285-25; A9270; G0378; Q9967

== ENCOUNTER 2025-07-01 12:04 | Observation (INO) | payer OTHER | END 2025-07-03 13:50 | disposition home or self-care (01) | LOC: ER 12:04 → ERHOLD 12:05 → MEDS 22:23 | PROVIDERS: ADMIT Internal Medicine | DX: I63.59 Cerebral infarction due to unspecified occlusion or stenosis of other cerebral artery (principal); I69.398 Other sequelae of cerebral infarction; G81.90 Hemiplegia, unspecified affecting unspecified side; H53.8 Other visual disturbances; R29.710 NIHSS score 10; I10 Essential (primary) hypertension; D64.9 Anemia, unspecified; E11.9 Type 2 diabetes mellitus without complications; E87.6 Hypokalemia; G43.909 Migraine, unspecified, not intractable, without status migrainosus; G40.909 Epilepsy, unspecified, not intractable, without status epilepticus; N17.9 Acute kidney failure, unspecified; N39.0 Urinary tract infection, site not specified; N83.202 Unspecified ovarian cyst, left side; Z79.01 Long term (current) use of anticoagulants; Z79.82 Long term (current) use of aspirin; Z79.84 Long term (current) use of oral hypoglycemic drugs; Z79.899 Other long term (current) drug therapy ==

== ENCOUNTER 2025-07-09 18:22 | Emergency (ER) | payer OTHER ==
[~2025-07-09] VITALS: Ht 149.9 cm; Wt 88.5 kg
[~2025-07-09 18:22] MED LIST changes: +CEPH500 PO; +CILOSTAZOL50 M1 PO; +LEVE500 PO
[2025-07-09] MEDS ORDERED: NS 1,000 ML IV SCH (18:50)
[2025-07-09 19:14] LABS: BASOPHILS ABSOLUTE AUTO 0.03 K/mm3 (0.00-0.23); BASOPHILS PERCENT AUTO 0 % (0-2); EOSINOPHILS ABSOLUTE AUTO 0.16 K/mm3 (0.00-0.68); EOSINOPHILS PERCENT AUTO 2 % (0-6); Hematocrit 34.9 % (33.0-51.0); Hemoglobin 11.5 g/dL (11.5-16.0); IMMATURE GRAN ABSOLUTE AUTO 0.02 K/mm3 (0.00-0.10); IMMATURE GRAN PERCENT AUTO 0 % (0-1); LYMPHOCYTES ABSOLUTE AUTO 1.63 K/mm3 (0.84-5.20); LYMPHOCYTES PERCENT AUTO 17 % (21-46); MONOCYTES ABSOLUTE AUTO 0.67 K/mm3 (0.16-1.47); MONOCYTES PERCENT AUTO 7 % (4-13); Mean Corpuscular HGB Conc 33.0 g/dL (31.5-36.5); Mean Corpuscular Volume 89 fL (80-100); NEUTROPHILS ABSOLUTE AUTO 7.36 K/mm3 (1.96-9.15); NEUTROPHILS PERCENT AUTO 75 % (41-73); NRBC ABSOLUTE 0.00 K/mm3 (0.00-0.02); NRBC Auto 0.0 /100 WBC (0.0-0.2); Platelet Count 366 K/mm3 (150-400); RDW Coefficient Variation 13.1 % (11.7-14.2); RDW Standard Deviation 42.7 fL (35.1-46.3)
[2025-07-09 19:43] LABS: Alanine Aminotransfer (ALT/SGP 38 U/L (12-78); Albumin, Blood 3.1 g/dL (3.4-5.0); Albumin/Globulin Ratio 0.7 (0.8-1.8); Anion Gap 5 mmol/L (3-11); Aspartate Aminotrans (AST/SGOT 26 U/L (12-37); Beta HCG, Quantitative, Serum <1 mIU/mL (0-3); Bilirubin, Total 0.6 mg/dL (0.1-1.0); Blood Urea Nitrogen 14 mg/dL (8-24); CO2, Blood 28 mmol/L (21-32); Calcium, Blood 7.6 mg/dL (8.5-10.1); Chloride, Blood 106 mmol/L (98-108); Creatinine, Blood 0.67 mg/dL (0.40-1.00); Globulin, Blood 4.5 g/dL (2.2-4.0); Glucose, Blood 121 mg/dL (70-99); Potassium, Blood 3.3 mmol/L (3.5-5.5); Sodium, Blood 136 mmol/L (136-145); Total Protein, Blood 7.6 g/dL (6.4-8.2)
[2025-07-09 20:54] LABS: Source, Urine Clean Catch
[2025-07-09 20:58] LABS: Bilirubin, Urine Neg (Neg); Color, Urine Yellow (P-Yellow); Glucose Qualitative, Urine Neg (Neg); Ketones, Urine Neg (Neg); Leukocyte Esterase, Urine Neg (Neg); Protein, Urine Neg (Neg); Specific Gravity, Urine 1.010 (1.003-1.022); Urobilinogen, Urine NORM (Normal)
[2025-07-09 21:13] LABS: Red Blood Cells, Urine 0-2 /hpf (0-2); White Blood Cells, Urine 0-2 /hpf (0-5)
[2025-07-09 22:14] VITALS: BP 130/86
== END 2025-07-09 22:16 | disposition home or self-care (01) ==
LOC: ER 18:22
PROVIDERS: Student in an Organized Health Care Education/Training Program
DX: E86.0 Dehydration (principal); R19.7 Diarrhea, unspecified; E11.9 Type 2 diabetes mellitus without complications; I10 Essential (primary) hypertension; Z79.899 Other long term (current) drug therapy
CPT/HCPCS: 70450; 80053; 81001; 84702; 85025; 93005; 93010; 96360; 99284-25; J7030